=== PATIENT | female | born 1955 | race Caucasian/White ===

== ENCOUNTER → 2021-05-21 | Outpatient (CLI) | payer MEDICARE | LOC: US 12:06 | PROVIDERS: ATTEND Family Medicine | DX: R22.1 Localized swelling, mass and lump, neck (principal) | CPT/HCPCS: 76536 ==

== ENCOUNTER → 2021-06-06 | Outpatient (CLI) | payer MEDICARE ==
[~2021-06-06] MED LIST: LIDOCAINE HCL 1% LOCAL INJ 20 ML VIAL ONE
== END ==
LOC: US 11:56
PROVIDERS: ATTEND Family Medicine
DX: R22.1 Localized swelling, mass and lump, neck (principal); Z20.822 Contact with and (suspected) exposure to COVID-19
CPT/HCPCS: 38505; 76942; 88112; 88172; 88173; 88305; J2001; U0002; 88304

== ENCOUNTER → 2022-09-04 | Outpatient (CLI) | payer MEDICARE | LOC: DX 13:42 | PROVIDERS: ATTEND Family Medicine | DX: Z13.820 Encounter for screening for osteoporosis (principal); M25.552 Pain in left hip | CPT/HCPCS: 77080 ==